=== PATIENT | male | born 1950 | race Caucasian/White ===

== ENCOUNTER 2017-10-25 02:13 | Inpatient (IN) | payer OTHER ==
[~2017-10-25] VITALS: Ht 182.9 cm; Wt 113.4 kg
[~2017-10-25 02:13] MED LIST: ALLOPURINOL 30300 M2 PO; COZAAR 25 MG TA25 M1 PO; HUMALOG100 UNIT/1 SUBQ; LIPITOR 10 MG10 M1 PO; LISINOPRIL-HCT1 EAC2 PO; LISINOPRIL10 MG PO; MUCINEX TA600 MG/TA2 PO
[2017-10-25 02:19] VITALS: BP 190/103
[2017-10-25 02:44] LABS: ABSOLUTE NEUTROPHILS 8.2 thou/uL (1.4-8.2); BASOPHILS 0.4 % (0.0-2.0); EOSINOPHILS 2.1 % (0.0-3.0); HEMATOCRIT 48.8 % (42.0-52.0); HEMOGLOBIN 16.9 gm/dL (14.0-18.0); LYMPHOCYTES 15.8 % (24.0-44.0); MCH 29.3 pg (26.0-34.0); MCHC 34.6 g/dL (28.0-37.0); MCV 84.7 fL (80.0-100.0); PLATELET COUNT 284 thou/uL (150-400); POLYS 74.7 % (36.0-66.0); RBC 5.76 mil/uL (4.50-6.00); RDW 16.1 % (10.5-14.5)
[2017-10-25 02:51] LABS: CALCIUM 9.5 mg/dL (8.5-10.1); CREATININE 0.9 mg/dL (0.7-1.3); POTASSIUM 4.2 mmol/L (3.5-5.1)
[2017-10-25 02:57] LABS: TOTAL PROTEIN 8.5 g/dL (6.4-8.2)
[2017-10-25 06:24] VITALS: BP 157/79
[2017-10-25 06:27] VITALS: BP 138/79
[2017-10-25 07:34] VITALS: BP 155/89
[2017-10-25 16:39] VITALS: BP 185/81
[2017-10-25 19:41] VITALS: BP 156/74
[2017-10-26 03:20] VITALS: BP 135/76
[2017-10-26 05:56] LABS: HEMATOCRIT 45.3 % (42.0-52.0); HEMOGLOBIN 15.3 gm/dL (14.0-18.0); MCH 29.5 pg (26.0-34.0); MCHC 33.9 g/dL (28.0-37.0); MCV 86.9 fL (80.0-100.0); RBC 5.21 mil/uL (4.50-6.00); RDW 15.9 % (10.5-14.5); WBC 12.9 thou/uL (4.0-11.0)
[2017-10-26 06:08] LABS: CALCIUM 8.2 mg/dL (8.5-10.1); CREATININE 1.2 mg/dL (0.7-1.3); POTASSIUM 4.3 mmol/L (3.5-5.1)
[2017-10-26 08:40] VITALS: BP 141/65
[2017-10-26 14:00] VITALS: BP 141/65
== END 2017-10-26 14:21 | disposition home or self-care (01) | DRG 388 ==
LOC: ER 02:13 → EROBS 05:35 → 4W 05:35
PROVIDERS: Emergency Medicine; Hospitalist
DX: K56.600 Partial intestinal obstruction, unspecified as to cause (principal); N17.0 Acute kidney failure with tubular necrosis; Z93.2 Ileostomy status; Z79.899 Other long term (current) drug therapy
CPT/HCPCS: 10040